=== PATIENT | female | born 1970 | race Caucasian/White ===

== ENCOUNTER → 2017-05-11 | Outpatient (CLI) | payer OTHER | LOC: MC.RAD 09:40 | DX: Z12.31 Encounter for screening mammogram for malignant neoplasm of breast (principal) ==

== ENCOUNTER → 2020-01-20 | Outpatient (CLI) | payer BC | LOC: MC.RAD 16:42 | DX: Z12.31 Encounter for screening mammogram for malignant neoplasm of breast (principal) ==